=== PATIENT | female | born 1995 | race Caucasian/White ===

== ENCOUNTER 2022-12-07 14:25 | Emergency (ER) | payer SELFPAY ==
[~2022-12-07] VITALS: Ht 175.3 cm; Wt 90.7 kg
[2022-12-07 14:53] VITALS: BP 133/95
[2022-12-07] MEDS ORDERED: MECLIZINE 25 MG TAB PO ONE (15:20)
[2022-12-07] MEDS ORDERED: KETOROLAC 30 MG/ML VIAL IM ONE (16:20)
--- NOTE | 2022-12-07 16:39 | NUR ---
Patient ambulated to bed 8.
--- NOTE | 2022-12-07 16:44 | NUR ---
27 y/o female bib self with c/o headache, blurry vision and dizziness x 6 days. Patient has a history of gestational diabetes, not currently . Patient has 9/10 pressure pain and sensitivity to light. Patient reports pain is similar to migraine headache. Denies any fever, chills or SOB. Medical History: Migraines NKDA
[2022-12-07 16:45] LABS: APPEARANCE,URINE CLEAR (CLEAR); BILIRUBIN,URINE NEGATIVE (NEGATIVE); BLOOD, URINE NEGATIVE (NEGATIVE); LEUKOCYTE ESTERASE ,URINE TRACE (NEGATIVE); NITRITE, URINE NEGATIVE (NEGATIVE); PH,URINE 6.5 (5.0-9.0); UGLUCOSE NEGATIVE (NEGATIVE)
[2022-12-07 16:57] LABS: COLOR,URINE STRAW (YELLOW); RBC,URINE NONE SEEN /HPF (0-5); WBC,URINE 0-5 /HPF (0-5)
--- NOTE | 2022-12-07 17:31 | NUR ---
BODY SPECIALIST Estevez re-evaluating patient at bedside.
[2022-12-07] MEDS ORDERED: MECL-303 PO (18:05)
[2022-12-07] MEDS ORDERED: DIPH25TA53 PO (18:05)
[2022-12-07] MEDS ORDERED: PROC-87 PO (18:05)
[2022-12-07 18:14] VITALS: BP 120/79
--- NOTE | 2022-12-07 18:14 | NUR ---
Patient discharged with v/s stable. Written and verbal after care instructions given. Patient alert, oriented and verbalized understanding of instructions. Ambulatory with steady gait. All questions addressed prior to discharge. ID band removed. Patient advised to follow up with PMD. Rx of Benadryl, Antivert and Compazine given. Opportunity to ask questions provided and answered. WORK NOTE HANDED TO PATIENT.
== END 2022-12-07 18:14 | disposition home or self-care (01) ==
LOC: MED 14:25
DX: R51.9 Headache, unspecified (principal); R42 Dizziness and giddiness; H53.8 Other visual disturbances; Z79.899 Other long term (current) drug therapy
CPT/HCPCS: 81001; 81025; 96372; 99283; J1885; J8597